=== PATIENT | female | born 1985 | race African-American/Black ===

== ENCOUNTER 2018-10-06 16:44 | Emergency (ER) | payer MEDICAID ==
[~2018-10-06] VITALS: Ht 172.7 cm; Wt 70.0 kg
[2018-10-06 16:48] VITALS: BP 112/74
== END 2018-10-06 18:17 | disposition left against medical advice (07) ==
LOC: ER 17:01
DX: R10.9 Unspecified abdominal pain (principal); Z53.21 Procedure and treatment not carried out due to patient leaving prior to being seen by health care provider